=== PATIENT | male | born 1970 | race Two or more races ===

== ENCOUNTER 2016-04-28 18:25 | Emergency (ER) | payer OTHER ==
--- NOTE | 2016-04-29 09:22 | ER ---
ADMIT: 04/28/2016 RM/LOC: [facility] MR#: [id number] [address] [place] [id number] EROS LOVE [address] [place] [address] [place] [address] Emergency Room Report SEX: M AGE: 46 : 1970 DATE: 04/28/2016 ADDENDUM: CHIEF COMPLAINT: Shortness of breath. HISTORY OF PRESENT ILLNESS: This is a 46-year-old male who has a history of asthma. He has been outside more in the last 3-5 days. He says he has bad allergies and his asthma starts to act up around that time. He has also complained of a cough over the last 2 or 3 days, but did not know if that was more allergies or upper respiratory infection. PAST MEDICAL HISTORY: Asthma and GERD. MEDICATIONS: Include: 1. Symbicort. 2. Ventolin. 3. Omeprazole. ALLERGIES: NO KNOWN ALLERGIES. SOCIAL HISTORY: Denies any tobacco, drug, or alcohol use. FAMILY HISTORY: Noncontributory. REVIEW OF SYSTEMS: CONSTITUTIONAL: Denies any fevers, chills, or sweats. CARDIOVASCULAR and RESPIRATORY: Denies any chest pain, but has had some increased shortness of breath over the last 3-5 days. In fact, it has been hard for him to sleep. All systems otherwise negative. PHYSICAL EXAMINATION: VITAL SIGNS: Blood pressure 152/88, pulse is 110, respirations 118, temperature 98.8 tympanic, saturation of oxygen 94% on room air. GENERAL APPEARANCE: Mild distress but alert. HEENT: Pharynx is moist. No tonsillar swelling or exudate. ADMIT: 04/28/2016 RM/LOC: [facility] MR#: [id number] [address] [place] [id number] EROS LOVE [address] [place] [address] Emergency Room Report SEX: M AGE: 46 : 1970 HEART: Slightly tachycardic. LUNGS: Wheezy bilateral. His sats are 94% on room air. ABDOMEN: Soft, nontender. SKIN: Normal color, warm, and dry. No rashes noted. COURSE IN THE EMERGENCY ROOM: He received DuoNeb. Did chest x-ray, which was negative for any acute infection, over-read by Dr. Mcdonald. I gave him Decadron 10 mg IM. He feels significantly better at this time. His sats are still at 94%-95%. I am going to discharge him home. Send him home with prednisone, have him continue his treatments as planned, have him follow up with primary care physician if worsen. CLINICAL IMPRESSION: Asthma, acute exacerbation. IVETT Perkins / Tom Mcdonald MD / rosaural JOB #: [id number] CC: Tom Mcdonadl MD, Attending Physician
== END 2016-04-28 19:40 | disposition home or self-care (01) ==
LOC: ER 18:25
DX: J45.901 Unspecified asthma with (acute) exacerbation (principal); K21.9 Gastro-esophageal reflux disease without esophagitis; Z79.899 Other long term (current) drug therapy